=== PATIENT | female | born 1985 ===

== ENCOUNTER → 2021-08-02 | Outpatient (CLI) | payer OTHER ==
[2021-08-02 14:57] LABS: Candida species (DNA Probe) Negative (NEGATIVE); G. vaginalis (DNA Probe) Positive (NEGATIVE); T. vaginalis (DNA Probe) Positive (NEGATIVE)
== END | disposition home or self-care (01) ==
LOC: LAB SHORT 11:05 → LAB 11:05
PROVIDERS: Nurse Practitioner
DX: R82.90 Unspecified abnormal findings in urine (principal)
CPT/HCPCS: 87077; 87086; 87147; 87186; 87480; 87510; 87660

== ENCOUNTER 2021-08-28 12:49 | Emergency (ER) | payer OTHER ==
[~2021-08-28] VITALS: Ht 165.1 cm; Wt 69.8 kg
[2021-08-28 13:31] LABS: Source, Urine Clean Catch
[2021-08-28 13:33] LABS: Appearance, Urine Clear (Clear); Bilirubin, Urine Neg (Neg); Blood, Urine 4+ (Neg); Color, Urine Yellow (P-Yellow); Glucose Qualitative, Urine Neg (Neg); Ketones, Urine Neg (Neg); Leukocyte Esterase, Urine 3+ (Neg); Nitrite, Urine Pos (Neg); Protein, Urine 2+ (Neg); Specific Gravity, Urine 1.025 (1.003-1.022); Urobilinogen, Urine NORM (Normal)
[2021-08-28 13:43] LABS: White Blood Cells, Urine 25-50 /hpf (0-5)
[2021-08-28 13:44] LABS: Amorphous Heavy (0-Heavy); Bacteria Many /hpf; Mucus Light (0-Heavy); Red Blood Cells, Urine 50-100 /hpf (0-2); Squamous Epithelial Cells Many /hpf (Few)
[2021-08-28 15:10] LABS: Source, Urine Clean Catch
[2021-08-28 15:20] LABS: Bilirubin, Urine Neg (Neg); Blood, Urine 4+ (Neg); Color, Urine Yellow (P-Yellow); Glucose Qualitative, Urine Neg (Neg); Ketones, Urine Neg (Neg); Leukocyte Esterase, Urine 3+ (Neg); Nitrite, Urine Pos (Neg); Protein, Urine 2+ (Neg); Specific Gravity, Urine 1.025 (1.003-1.022); Urobilinogen, Urine NORM (Normal)
[2021-08-28 15:32] LABS: Appearance, Urine Hazy (Clear)
[2021-08-28 15:35] LABS: Red Blood Cells, Urine 25-50 /hpf (0-2)
[2021-08-28 15:36] LABS: Amorphous Light (0-Heavy); Bacteria Many /hpf; Mucus Heavy (0-Heavy); Squamous Epithelial Cells Few /hpf (Few)
[2021-08-28] MEDS ORDERED: SULTRIDS PO (15:49)
== END 2021-08-28 16:02 | disposition home or self-care (01) ==
LOC: ER 12:49
PROVIDERS: Physician Assistant
DX: N39.0 Urinary tract infection, site not specified (principal)
CPT/HCPCS: 81001; 81025; 87077; 87086; 87186; 99283; A9270

== ENCOUNTER 2021-12-19 12:04 | Emergency (ER) | payer OTHER ==
[~2021-12-19] VITALS: Ht 165.1 cm; Wt 67.5 kg
[~2021-12-19 12:04] MED LIST: SULTRIDS PO
[2021-12-19] MEDS ORDERED: NAPROXEN250 M1 PO (14:14)
== END 2021-12-19 14:19 | disposition home or self-care (01) ==
LOC: ER 12:04
DX: S83.91XA Sprain of unspecified site of right knee, initial encounter (principal); W18.30XA Fall on same level, unspecified, initial encounter
CPT/HCPCS: 11740; 73562-RT; 93971; 99284-25; A9270